=== PATIENT | male | born 1950 | race Caucasian/White ===

== ENCOUNTER 2019-05-23 00:01 | Emergency (ER) | payer BC ==
[~2019-05-23] VITALS: Ht 180.3 cm; Wt 80.7 kg
[~2019-05-23 00:01] MED LIST: FINA5 PO; IBUP800 PO; OXYC5 PO; TAMS.4ER PO
[2019-05-23] MEDS ORDERED: ATORVASTATIN CA10 MG PO (00:24)
[2019-05-23] MEDS ORDERED: Percocet 5-3251 EACH PO (15:22)
[2019-05-23] MEDS ORDERED: Prednisone20 MG PO (15:23)
== END 2019-05-23 02:28 | disposition left against medical advice (07) ==
LOC: ER 00:01
DX: Z53.21 Procedure and treatment not carried out due to patient leaving prior to being seen by health care provider (principal)

== ENCOUNTER 2019-05-23 14:42 | Emergency (ER) | payer MEDICARE, BC ==
[~2019-05-23] VITALS: Ht 182.9 cm; Wt 80.7 kg
[~2019-05-23 14:42] MED LIST changes: +ATORVASTATIN CA10 MG PO
[2019-05-23] MEDS ORDERED: Percocet 5-3251 EACH PO (15:22)
[2019-05-23] MEDS ORDERED: Prednisone20 MG PO (15:23)
== END 2019-05-23 15:30 | disposition home or self-care (01) ==
LOC: ER 14:42
DX: M54.31 Sciatica, right side (principal); Z88.1 Allergy status to other antibiotic agents; Z88.2 Allergy status to sulfonamides; Z79.899 Other long term (current) drug therapy; Z79.52 Long term (current) use of systemic steroids
CPT/HCPCS: 99283